=== PATIENT | female | born 1995 | race Caucasian/White ===

== ENCOUNTER 2017-11-21 04:55 | Emergency (ER) | payer OTHER ==
[~2017-11-21] VITALS: Ht 152.4 cm; Wt 56.7 kg
[2017-11-21 04:58] VITALS: BP 120/80
--- NOTE | 2017-11-21 04:58 | NUR ---
TO BED # 11 AMBULATORY , REPORT GIVEN TO CASTILLO SWEET
--- NOTE | 2017-11-21 05:11 | NUR ---
Pt presents to ED [facility] complaints of chest pain x1 week. Patient states pain is "all over" chest and "all over" abdomen. Pt states "It hurts worse when I eat." Pt also c/o worse pain at night. Pt c/o 8/10 pain. No active vomiting noted. Pt reports also having N/V. AOX4, speaking in full sentences. Pt states "I came in tonight because I can't take it anymore." VSS. EKG performed at bedside. Pt appears comfortable, NAD noted. Mother at bedside. Pt awaiting ERMD evaluation. All other needs met.
--- NOTE | 2017-11-21 06:27 | NUR ---
Dr. Reese evaluating patient at beside.
[2017-11-21] MEDS ORDERED: PANTOPRAZOLE 40 MG TABEC PO ONE (06:30)
[2017-11-21 06:37] VITALS: BP 120/80
--- NOTE | 2017-11-21 06:37 | NUR ---
Patient discharged with v/s stable. Written and verbal after care instructions given and explained. Patient alert, oriented and verbalized understanding of instructions. Ambulatory with steady gait. All questions addressed prior to discharge. ID band removed. Patient advised to follow up with PMD. Rx of Omeprazole 40mg given. Patient educated on indication of medication including possible reaction and side effects. Opportunity to ask questions provided and answered.
== END 2017-11-21 06:37 | disposition home or self-care (01) ==
LOC: MED 04:55
DX: K21.9 Gastro-esophageal reflux disease without esophagitis (principal); K29.70 Gastritis, unspecified, without bleeding
CPT/HCPCS: 81025; 93005; 99283